=== PATIENT | female | born 1945 | race Caucasian/White ===

== ENCOUNTER 2016-12-10 15:20 | Inpatient (IN) | payer OTHER ==
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
[2016-12-10] MEDS ORDERED: Sodium Chloride 0.9% 1,000 ML PRIMARY IV ONE (17:03)
[2016-12-10] MEDS ORDERED: NORMAL SALINE 10 ML SYRINGE FLUSH IVP PRN ×4 (17:03→18:52)
[2016-12-10] MEDS ORDERED: MORPHINE SULFATE 2 MG/1 ML IVP ONE (17:18)
[2016-12-10] MEDS ORDERED: ONDANSETRON 4 MG/2 ML VIAL IVP ONE (17:18)
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
[2016-12-10 17:42] LABS: BASOPHILS # (AUTO) 0.01 10*3/UL; BASOPHILS % (AUTO) 0.1 % (0-1); EOSINOPHILS # (AUTO) 0.06 10*3/UL; EOSINOPHILS % (AUTO) 0.6 % (0-8); HEMOGLOBIN 12.6 g/dL (12.0-16.0); MEAN CORPUSCULAR HEMOGLOBIN 28.5 PG (27-31); MEAN CORPUSCULAR HGB CONC 32.3 g/dL (33-37); MEAN CORPUSCULAR VOLUME 88.2 FL (81-99); MEAN PLATELET VOLUME 9.6 FL (7.4-12.2); MONOCYTES # (AUTO) 0.55 10*3/UL (0.3-0.8); MONOCYTES % (AUTO) 5.7 % (5-15); NEUTROPHILS # (AUTO) 7.82 10*3/UL; NEUTROPHILS % (AUTO) 81.8 % (50-80); RED BLOOD COUNT 4.42 10^6/uL (4.20-5.40)
[2016-12-10 17:44] LABS: PLATELET MORPHOLOGY COMMENT NORMAL MORPHOLOGY (NORM); RBC MORPHOLOGY COMMENT NORMAL MORPHOLOGY (NORM); WBC MORPHOLOGY COMMENT NORMAL MORPHOLOGY (NORM)
[2016-12-10 17:51] LABS: BLOOD UREA NITROGEN 18 mg/dL (7-22); BUN/CREATININE RATIO 12.85 (6-20)
[2016-12-10] MEDS ORDERED: HYDROmorphone 2 MG/1 ML IVP PRN (18:52)
[2016-12-10] MEDS ORDERED: LIDOCAINE W/ SODIUM BICARB 0.5 ML SYR SUBD PRN (18:52)
[2016-12-10] MEDS ORDERED: Glucagon Inj Vial 1 MG/ML VIAL IM PRN (18:52)
[2016-12-10] MEDS ORDERED: CALCIUM CARBONATE 500 MG (TUMS) CHEWABLE TABLET PO PRN (18:52)
[2016-12-10] MEDS ORDERED: Insulin Sliding Scale Protocol SUBCUT PRN (18:52)
[2016-12-10] MEDS ORDERED: ONDANSETRON 4 MG/2 ML VIAL IVP PRN (18:52)
[2016-12-10] MEDS ORDERED: DEXTROSE 50%-WATER SYRINGE 50 ML SYRINGE IVP PRN (18:52)
[2016-12-10] MEDS ORDERED: DEXTROSE 31 GM GEL PO PRN (18:52)
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
--- NOTE | 2016-12-10 19:36 | EKG ---
[address] [address] Measurements Intervals [place] Rate: 91 P: 49 MN: 174 QRS: 13 QRSD: 87 T: 61 QT: 345 QTc: 393 Interpretive Statements SINUS RHYTHM No previous ECG available for comparison Electronically Signed On 12-11-16 13:13:15 MDT by Jono Castle [email or web address]
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
[2016-12-10] MEDS: HYDROcodone-APAP 5 MG -325 MG TABLET PO PRN (20:48)
[2016-12-10] MEDS: MESALAMINE 800 MG PO SCH (21:21)
[2016-12-10] MEDS: DOCUSATE 100 MG CAPSULE PO SCH (21:21)
[2016-12-10] MEDS: Insulin Lispro Flexpen 300 UNIT/3 ML INSULN.PEN SUBCUT SCH (21:21)
[2016-12-11] MEDS: Lactated Ringers 1,000 ML PRIMARY IV SCH ×3 (00:21→20:14)
[2016-12-11] MEDS: HYDROcodone-APAP 5 MG -325 MG TABLET PO PRN ×5 (00:39→20:39)
[2016-12-11] MEDS: Insulin Lispro Flexpen 300 UNIT/3 ML INSULN.PEN SUBCUT SCH ×4 (07:09→21:07)
[2016-12-11 07:44] LABS: BLOOD UREA NITROGEN 17 mg/dL (7-22); BUN/CREATININE RATIO 13.07 (6-20); CALCIUM 8.8 mg/dL (8.7-10.7)
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
[2016-12-11] MEDS: DOCUSATE 100 MG CAPSULE PO SCH ×2 (10:00→20:39)
[2016-12-11] MEDS: MESALAMINE 800 MG PO SCH (10:00)
[2016-12-11 12:21] LABS: BILIRUBIN,URINE NEGATIVE (NEG); COLOR,URINE YELLOW; GLUCOSE, URINE (UA) NEGATIVE (NEG); NITRATE,URINE NEGATIVE (NEG); OCCULT BLOOD,URINE SMALL (NEG); PROTEIN,URINE 30 mg/dl (NEG); UROBILINOGEN,URINE 0.2 EU/dL (0.2)
[2016-12-11 12:29] LABS: CLARITY,URINE CLEAR (CLEAR)
[2016-12-11 12:30] LABS: BACTERIA,URINE RARE; SQUAMOUS EPITHELIAL CELL,UR RARE; URINE SAMPLE TYPE CLEAN CATCH URINE
[2016-12-11] MEDS ORDERED: ceFAZolin Inj 2gm (Premix) 50 ML IV ONE (13:43)
[2016-12-11] MEDS ORDERED: LIDOCAINE W/ SODIUM BICARB 0.5 ML SYR ONE (13:56)
[2016-12-11] MEDS ORDERED: LIDOCAINE 2%/ EPI 1:200,000 - 20 ML VIAL ONE (13:56)
[2016-12-11] MEDS ORDERED: MIDAZOLAM 5 MG/1 ML ONE (13:56)
[2016-12-11] MEDS ORDERED: fentaNYL Inj 100 MCG/2 ML VIAL ONE (13:56)
[2016-12-11] MEDS ORDERED: BUPIVACAINE 0.5% W/ EPI - 10 ML VIAL ONE (13:56)
--- NOTE | 2016-12-11 14:43 | CRNA.PROCE ---
Nerve Block Documentation - - Safety Measures: Time Out Taken, Site Verified - - Type of Nerve Block Used: Right Infraclavicular Block Position for Nerve Block: Supine Moniters Used During Block: EKG, SPO2, NIBP Oxygen Sumpplented: Yes Sedation Used - Enter Amount in Comment Field: Midazolam (mg): Yes (3mg iv) Skin Prep Used: ChloroPrep Technique: Nerve Stimulator Nerve Block Needle Used: 80 mm ProBlk II Stimulation Hz: 1.0 Stimulation Staring mA: 1.2 Stimulation Ending mA: 0.5 Local Anesthetic - Enter Amt in Comment Field: 0.5 % Bupivicaine with Epinephrine 1:200,000 (mL): Yes (20ml), 2 % Xylocaine with Epinephrine 1:200, 000 (mL): Yes (20ml)
[2016-12-11] MEDS ORDERED: BACITRACIN 50,000 UNIT VIAL IRRIG ONE (15:54)
[2016-12-11] MEDS ORDERED: Sodium Chloride 0.9% vial 10 ML ONE (15:54)
[2016-12-11] MEDS ORDERED: BUPivacaine Liposome/PF (Exparel) Inj 20ml vial INFIL ONE (17:35)
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
[2016-12-11] MEDS ORDERED: Lactated Ringers 1,000 ML PRIMARY IV ONE (18:06)
[2016-12-11] MEDS ORDERED: TRANEXAMIC ACID 1,000 MG / 10 ML VIAL ONE (18:13)
[2016-12-12] MEDS: HYDROcodone-APAP 5 MG -325 MG TABLET PO PRN ×6 (00:21→16:38)
[2016-12-12] MEDS: Lactated Ringers 1,000 ML PRIMARY IV SCH (00:31)
[2016-12-12] MEDS ORDERED: HYDROmorphone 2 MG/1 ML IVP STA (01:54)
[2016-12-12] MEDS ORDERED: HYDROmorphone 2 MG/1 ML IVP PRN (01:55)
[2016-12-12] MEDS ORDERED: MAG HYDROX/AL HYDROX/SIMETH 30 ML SUSP PO PRN (06:25)
[2016-12-12] MEDS ORDERED: Prochlorperazine Tab 10 MG TAB PO PRN (06:25)
[2016-12-12] MEDS ORDERED: HYDROcodone-APAP 7.5 MG-325 MG TABLET PO PRN (06:25)
[2016-12-12] MEDS ORDERED: ACETAMINOPHEN 325 MG TABLET PO PRN (06:25)
[2016-12-12] MEDS ORDERED: IBUPROFEN 400 MG TABLET PO PRN (06:25)
[2016-12-12] MEDS ORDERED: Ondansetron ODT Tab 8 MG TAB PO PRN (06:25)
[2016-12-12] MEDS ORDERED: CALCIUM CARBONATE 500 MG (TUMS) CHEWABLE TABLET PO PRN (06:25)
[2016-12-12] MEDS ORDERED: diphenhydrAMINE 25 MG CAPSULE PO PRN (06:25)
[2016-12-12] MEDS ORDERED: BISACODYL 10 MG SUPPOSITORY RECTAL PRN (06:25)
[2016-12-12] MEDS ORDERED: BISACODYL 5 MG TABLET PO PRN (06:25)
[2016-12-12] MEDS ORDERED: MORPHINE SULFATE 2 MG/1 ML IVP PRN (06:25)
[2016-12-12] MEDS ORDERED: Lactated Ringers 1,000 ML PRIMARY IV SCH (06:25)
[2016-12-12] MEDS ORDERED: NORMAL SALINE 10 ML SYRINGE FLUSH IVP PRN (06:25)
[2016-12-12] MEDS ORDERED: ONDANSETRON 4 MG/2 ML VIAL IVP PRN (06:25)
[2016-12-12] MEDS: ceFAZolin Inj 2gm (Premix) 2 GM in Dextrose 1 BAG IV SCH ×2 (07:10→14:10)
[2016-12-12] MEDS ORDERED: ALLOPURINOL 100 MG TABLET PO SCH (09:00)
[2016-12-12] MEDS ORDERED: LISINOPRIL 5 MG TABLET PO SCH (09:00)
[2016-12-12 10:14] LABS: BUN/CREATININE RATIO 12.5 (6-20); CALCIUM 8.7 mg/dL (8.7-10.7)
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
--- NOTE | 2016-12-12 16:18 | ORTHO.PROG ---
Last Taken Vital Signs: Vital Signs - Last Taken Temperature 97 F 12/12/16 13:00 Pulse Rate 84 12/12/16 13:00 Respiratory Rate 16 12/12/16 13:00 Blood Pressure 121/63 12/12/16 13:00 Pulse Ox 95 12/12/16 13:00 Subjective: Patient status post left both bone forearm fracture comminuted with open reduction internal fixation doing well states her pain is well controlled on oral medications and also right wrist is doing well also. Objective: Examination of the left wrist show that the sugar tong splint is in place patient with good digit extension and flexion to the limits of the splint. No passive stretch pain. Her median ulnar and radial sensory are intact. Patient with brisk refill Laboratory Results 12/12/16 Range/Units 09:44 Sodium 136 (135-145) meq/L Potassium 4.2 (3.8-5.2) meq/L Chloride 100 (98-112) meq/L Carbon Dioxide 26 (23-33) meq/L Anion Gap 10 (5-20) BUN 15 (7-22) mg/dL Creatinine 1.2 (0.50-1.20) mg/dL Estimated GFR (>60 ml/min/1.73m(2)) BUN/Creatinine Ratio 12.50 (6-20) Glucose 168 H (78-110) mg/dL Mean Blood Glucose 140.440 mg/dL Hemoglobin A1c 6.80 H (4.2-6.0) % Calculated Osmolality 286.0 (267-292) mOsm/kg Calcium 8.7 (8.7-10.7) mg/dL Vital Signs (24 hrs) Temp Pulse Pulse Pulse Pulse Resp BP 12/12/16 13:00 97 F 84 16 12/12/16 08:39 98.8 F 86 20 12/12/16 07:00 78 86 20 12/12/16 05:04 12/12/16 04:46 98.4 F 83 18 12/12/16 03:00 82 12/11/16 23:54 97.5 F 80 16 12/11/16 23:00 80 12/11/16 21:30 98.9 F 89 16 12/11/16 20:30 84 12/11/16 20:00 84 12/11/16 19:30 96.5 F L 96 20 12/11/16 19:05 97.4 F 81 16 138/76 12/11/16 19:00 85 16 12/11/16 18:58 96.8 F 85 16 132/84 BP Pulse Ox 12/12/16 13:00 121/63 95 12/12/16 08:39 126/63 93 12/12/16 07:00 12/12/16 05:04 93 12/12/16 04:46 114/58 94 12/12/16 03:00 12/11/16 23:54 139/66 93 12/11/16 23:00 12/11/16 21:30 148/72 95 12/11/16 20:30 141/71 91 12/11/16 20:00 146/64 12/11/16 19:30 157/63 92 12/11/16 19:05 12/11/16 19:00 12/11/16 18:58 Assessment: Left mid third shaft radius and ulna fracture of the forearm Right comminuted intra-articular distal radius fracture Plan: We discussed the patient's current condition and clinical findings as it pertains to the current situation. Surgical versus nonsurgical options risks and benefits were discussed and reviewed. Options moving forward include but are not limited to continued choice to live with their current condition; evaluate their current condition further with imaging studies and/or diagnostic testing, etc.; treat problem/problems with surgical versus nonsurgical methods. The patient demonstrates a clear understanding of our discussion. All questions were answered. Spent time discussing with the patient and her findings with the right wrist and also the CT scan which was obtained. We sent this CT scan to [facility] to be evaluated by a hand surgeon who generally felt because of the small nature of the articular piece of the lunate fossa and the significant injury to the wrist in general that unlikely to be made better with reduction of this piece of bone and also question of how to stabilize this. They agree and we'll proceed with a casting of the arm and protection and we will see her back for reevaluation sooner for problems.
[2016-12-12] MEDS ORDERED: metFORMIN 500 MG TABLET PO SCH (16:30)
[2016-12-12 16:40] VITALS: RESP 20; TEMP 97.2
[2016-12-12] MEDS ORDERED: Simvastatin Tab 20 MG TAB PO SCH (21:00)
--- NOTE | 2016-12-15 12:13 | DI ---
XR CXR 1VW,12/12/2016 3:49 PM: Clinical History: Hypoxia Previous Exam: Jan 07 2008 Findings: A single frontal radiograph of the chest is obtained, and demonstrate some subsegmental atelectasis i n the lung bases. The cardiomediastinum and bony thorax are unremarkable Impression: No acute disease.
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
--- NOTE | 2016-12-15 15:14 | OT AM DAY ---
Diagnosis : Left Radial/Ulnar Fracture/Right Distal Radius Fracture/Ulnar Styloid Fracture AM - Occupational Therapy S: The patient is being consulted for ADLs today secondary to having bilateral wrist breaks. O: The therapist went through finger range of motion on bilateral wrists. She is in a 90 degree brace on the left and a short arm brace on the right. The patient was able to dress self using a button up shirt. She needed min assist for a couple of the buttons. Today the patient was able to dress lower extremities with min assist for the left side; however, she was able to put on sweatpants with min assist for the very end range. She was able to don her shoes; she does not wear socks. She states so far toileting has been okay and she will probably buy a big plastic wrap for when needing to complete toilet hygiene. A: The patient is doing well considering she has both hands in temporary casts. P: Continue seeing patient BID during the week and one time per day over the weekend for upper extremity strengthening, ADLs, and overall functional mobility. ZAFAR
== END 2016-12-12 16:50 | disposition home or self-care (01) | DRG 512 ==
LOC: ER 15:20 → MED/SURG 17:52 → OPS 12-11 13:35 → MED/SURG 12-11 19:25
PROVIDERS: ADMIT Family Medicine; ATTEND Family Medicine
PROC: 0PSJ04Z Reposition Left Radius with Internal Fixation Device, Open Approach (ICD-10-PCS; 2016-12-11)
PROC: 0PSL04Z Reposition Left Ulna with Internal Fixation Device, Open Approach (ICD-10-PCS; principal; 2016-12-11 15:15)
DX: S52.202A Unspecified fracture of shaft of left ulna, initial encounter for closed fracture (principal); S52.302A Unspecified fracture of shaft of left radius, initial encounter for closed fracture; S62.101A Fracture of unspecified carpal bone, right wrist, initial encounter for closed fracture; V47.5XXA Car driver injured in collision with fixed or stationary object in traffic accident, initial encounter; E11.9 Type 2 diabetes mellitus without complications; I10 Essential (primary) hypertension; N18.3 Chronic kidney disease, stage 3 (moderate)
CPT/HCPCS: 36415; 71010; 73090; 73110; 73200; 76001; 80048; 80053; 81001; 81003; 82948; 83036; 85025; 85610; 87641; 93005; 93010; 94761; 96374; 96375; 97112; 97161; 97535; 99284; A4216; J0690; J1170; J2250; J2270; J2405; J3010; J7030; J7120

== ENCOUNTER → 2016-12-15 | Outpatient (CLI) | payer OTHER ==
--- NOTE | 2016-12-15 14:55 | DI ---
XR WRIST 2 VW,12/15/2016 10:58 AM: Clinical History: Other intra-articular fracture of the distal end of the right radius. Previous Exam: December 10, 2016 Findings: 2 views of the right wrist are obtained, and demonstrate a stable fracture involving the distal right radius. There is also a nondisplaced fracture of the right ulnar styloid. Overlying plaster limits fine bony detail. Impression: Healing intra-articular fractures of the right distal radius and the right ulnar styloid.
== END ==
LOC: ORTHO 11:28
PROVIDERS: ATTEND Orthopaedic Surgery
DX: S52.571A Other intraarticular fracture of lower end of right radius, initial encounter for closed fracture (principal); S52.614A Nondisplaced fracture of right ulna styloid process, initial encounter for closed fracture
CPT/HCPCS: 73100

== ENCOUNTER → 2016-12-18 | Outpatient (CLI) | payer OTHER ==
--- NOTE | 2016-12-18 21:10 | DI ---
XR WRIST COMPLETE MIN 3VW,12/18/2016 4:29 PM: Clinical History: Intra-articular fracture of the distal end of the right radius. Previous Exam: December Findings: 3 views of the right wrist are obtained, and demonstrate a stable intra-articular fracture of the rig ht distal radius. There is a fragment noted along the volar surface consistent with a displaced avuls ed fragment. The overlying plaster limits fine bony detail. Impression: Intra-articular fracture with an avulsed fragment anteriorly involving the distal radius.
== END ==
LOC: ORTHO 16:54
PROVIDERS: ATTEND Orthopaedic Surgery
DX: S52.592E Other fractures of lower end of left radius, subsequent encounter for open fracture type I or II with routine healing (principal); S52.252D Displaced comminuted fracture of shaft of ulna, left arm, subsequent encounter for closed fracture with routine healing
CPT/HCPCS: 73110

== ENCOUNTER → 2016-12-22 | Outpatient (CLI) | payer OTHER ==
--- NOTE | 2016-12-22 16:12 | DI ---
XR WRIST COMPLETE MIN 3VW,12/22/2016 11:41 AM: Clinical History: Intra-articular fracture of the distal end of the right radius Previous Exam: Dec 18 2016 Findings: 3 views of the right wrist are obtained in plaster, and demonstrate a stable intra-articular fracture with an avulsion fragment along the volar aspect. Alignment is near-anatomic. Overlying plaster limits fine bony detail. Impression: Intra-articular right distal radial fracture.
== END ==
LOC: ORTHO 11:48
PROVIDERS: ATTEND Orthopaedic Surgery
DX: S52.571D Other intraarticular fracture of lower end of right radius, subsequent encounter for closed fracture with routine healing (principal)
CPT/HCPCS: 73110

== ENCOUNTER → 2017-01-01 | Outpatient (CLI) | payer OTHER ==
--- NOTE | 2017-01-01 11:53 | DI ---
XR WRIST COMPLETE MIN 3VW,01/01/2017 9:53 AM: Clinical History: Intra-articular fracture of the distal end of the right radius. Previous Exam: December 22, 2016 Findings: 3 views of the right wrist are obtained in plaster, and demonstrate a healing intra-articular distal radial fracture. Overlying plaster limits fine bony detail. Impression: Healing intra-articular right distal radial fracture.
--- NOTE | 2017-01-01 11:55 | DI ---
XR FOREARM 2VW,01/01/2017 9:53 AM: Clinical History: Fracture of the forearm. Previous Exam: None at this facility. Findings: AP and lateral views of the left forearm are obtained, and demonstrate screw and plate fixation of tr ansverse fractures through the left mid radius and ulna. There is some new callus formation. Impression: Healing left mid radial and ulnar fractures.
== END ==
LOC: ORTHO 10:03
PROVIDERS: ATTEND Physician Assistant
DX: S52.571A Other intraarticular fracture of lower end of right radius, initial encounter for closed fracture (principal); S52.692 Other fracture of lower end of left ulna
CPT/HCPCS: 73090; 73110

== ENCOUNTER → 2017-01-22 | Outpatient (CLI) | payer OTHER ==
--- NOTE | 2017-01-22 11:39 | DI ---
XR FOREARM 2VW,01/22/2017 9:12 AM: Clinical History: Fracture of the left forearm. Previous Exam: January 22, 2017 Findings: AP and lateral views of the left forearm are obtained, and demonstrate screw and plate fixation of a left ulnar and radial fracture. There is mild comminution. There has been some healing. Impression: Healing left mid radial and ulnar fractures.
--- NOTE | 2017-01-22 12:02 | DI ---
XR WRIST COMPLETE MIN 3VW,01/22/2017 9:12 AM: Clinical History: Right distal radial and ulnar fractures. Previous Exam: January 01, 2017 Findings: 3 views of the right wrist are obtained, and demonstrate a healing fracture of the right distal radiu s with some mild sclerosis. There is also a nonunion fracture of the right ulnar styloid. There has been interval removal of the overlying plaster. Impression: Healing right distal radial fracture and right ulnar styloid fracture.
== END ==
LOC: ORTHO 09:23
PROVIDERS: ATTEND Orthopaedic Surgery
DX: S52.571D Other intraarticular fracture of lower end of right radius, subsequent encounter for closed fracture with routine healing (principal); S52.35 Comminuted fracture of shaft of radius; S52.292 Other fracture of shaft of left ulna
CPT/HCPCS: 73090; 73110

== ENCOUNTER → 2017-02-05 | Outpatient (CLI) | payer OTHER ==
--- NOTE | 2017-02-05 11:00 | DI ---
XR FOREARM 2VW,02/05/2017 10:11 AM: Clinical History: Left forearm fracture. Previous Exam: January 22, 2017 Findings: AP and lateral views of the left forearm are obtained, and demonstrate screw and plate fixation of th e left mid radius and ulnar fractures. There is some mild comminution. The surrounding soft tissues are unremarkable. Impression: Screw and plate fixation over healing left mid radial and ulnar fractures.
== END ==
LOC: ORTHO 10:18
PROVIDERS: ATTEND Orthopaedic Surgery
DX: S52.572E Other intraarticular fracture of lower end of left radius, subsequent encounter for open fracture type I or II with routine healing (principal); S52.602E Unspecified fracture of lower end of left ulna, subsequent encounter for open fracture type I or II with routine healing
CPT/HCPCS: 73090

== ENCOUNTER → 2017-03-02 | Outpatient (CLI) | payer OTHER ==
--- NOTE | 2017-03-02 12:43 | DI ---
LEFT FOREARM, 03/02/2017 11:35 AM: Clinical History: Closed fracture of the left forearm with routine healing. Previous Exam: 02/05/2017. AP and lateral views are submitted. The patient is status post ORIF of midshaft fractures of both bon es of the forearm. Alignment and position are anatomic. Fracture lucencies are still visible at both sites. There does not appear to be significant change on the AP projection, but there is more scleros is at the radial fracture site indicating progressive healing. Reading: Status post ORIF of midshaft fractures of both bones of the forearm. Alignment and position are anato ravindra. There is apparent healing at least at the radial fracture site. The overlapping bones make evalu ation for healing of the ulna difficult.
--- NOTE | 2017-03-02 12:46 | DI ---
RIGHT WRIST, 03/02/2017 11:35 AM: Clinical History: Closed fracture of the distal right radius with routine healing. Previous Exam: 01/22/2017. 3 views are submitted. The impacted intra-articular fractures involving the distal radius show progre ssive healing with no change in alignment and position. The distal radial articular surface is in vilma tral position. There is loss of length of approximately 5 mm. Reading: Progressive healing of the impacted intra-articular fracture of the distal radius with no change in a lignment and position. There has been no change in the appearance of the fracture of the ulnar styloi d.
== END ==
LOC: ORTHO 11:38
PROVIDERS: ATTEND Orthopaedic Surgery
DX: M79.632 Pain in left forearm (principal); S52.571D Other intraarticular fracture of lower end of right radius, subsequent encounter for closed fracture with routine healing; S52.692 Other fracture of lower end of left ulna
CPT/HCPCS: 73090; 73110